=== PATIENT | male | born 1945 ===

== ENCOUNTER 2023-10-22 13:51 | Outpatient (AMB) | payer MEDICARE, OTHER, SELFPAY ==
--- NOTE | 2023-10-22 13:52 | A.OFFVIS_ITS ---
Vital Signs 10/22/23 14:03 Height 6 ft 0.2 in Weight 197 lb BMI 26.6 BP 130/60 Blood Pressure Location Lt brachial Position Sitting Respiration 16 Pulse 89 Pulse Source Pulse Oximeter Pulse Oximetry (%) 98 Oxygen Delivery Method Room Air Intake Visit Reasons: Sciatica/Foot Numbness Intake Note: Patient comes in for initial visit was referred by [facility] primary care. Reports -06/21. Allergies No Known Allergies Allergy (Verified 10/22/23 14:02) HPI Comments Details: Guillermo is very pleasant 78 years old gentleman who presents in my office with complains on minimal pain in the lower buttock, he reports that this pain started on 07/24/2023 3 months ago. She while lying the floor all over the left hip with wall it in his back pocket and started to experience pain in the buttock and numbness of the left foot. He reports that he can not sleep normally or do activities of daily living he can take care of himself and he can function normally. 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 He uses cane for ambulation. He reports that his pain today at the worst is 1/10. He reports that this pain is more severe at the end of the day and less severe in the morning. He reports his pain in terms of tissue damage as jumping, flushing, shooting, sharp, cutting, lacerating, pinching, cramping, crushing, tugging, pulling, wrenching, dull, sore hurting heavy sensation. He had some studies done at [facility] x-ray and MRI those are not available to me. His past medical history significant for prostate cancer status post radiation treatment arthritis rheumatic fever and sexual dysf unction. Past surgical history significant for right hip replacement in 2010 due to severe arthritis. Social history working individual stopped smoking cigarettes long time ago denies drinking alcohol denies recreational drugs. [facility] Medical History (Updated 10/22/23 @ 14:45 by Silvana Larsen) Osteoarthritis Prostate cancer Surgical History (Updated 10/22/23 @ 14:45 by Silvana Larsen) H/O right inguinal hernia repair History of right hip replacement Family History (Updated 10/22/23 @ 14:09 by Silvana Larsen) Father Chronic obstructive pulmonary disease Mother Coronary artery disease Social History (Updated 10/22/23 @ 14:05 by Silvana Larsen) Alcohol intake: former Patient Tobacco Use Status: Former Tobacco user Review of Systems Const Denies chills, Denies fatigue and Denies fever(s) Eyes Denies blurry vision, Denies exophthalmos and Denies diplopia ENT Reports Normal hearing present, Denies vertigo and Denies dizziness Card Denies chest pain, Denies chest pain at rest, Denies chest pain with activity, Denies syncope, Denies rapid heart rate, Denies pedal edema and Denies edema Resp Denies chest congestion, Denies cough, Denies hemoptysis, Denies excessive phlegm production, Denies pain on inspiration and Denies pain with cough GI Denies abdominal pain, Denies belching, Denies melena and Denies bloating Denies urinary incontinence Musc Denies as per HPI, Denies back pain and Denies tingling Neuro Reports Normal hearing present, Denies Abnormal speech present, Denies vertigo, Denies dizziness, Denies syncope, Denies lack of coordination, Denies Sensory deficit (Neuro) and Denies tingling Endo Denies deepening of the voice, Denies fatigue and Denies polyuria Physical Exam Vital Signs: Last Vital Signs Pulse 89 10/22/23 14:03 Resp 16 10/22/23 14:03 BP 130/60 10/22/23 14:03 Pulse Ox 98 10/22/23 14:03 Oxygen Delivery Method Room Air 10/22/23 14:03 BMI result Body Mass Index 26.6 Const General: no acute distress, well developed, alert and awake Nutritional Appearance: average body habitus, well nourished and thin Orientation/consciousness: patient oriented x3 Eyes General: appearance normal, both eyes and all related structures Pupils: Equal, round and reactive pupils present EOM: EOMs intact bilaterally Neck Neck: Yes full ROM Chest Chest palpation & inspection: normal inspection of the chest Resp Effort & Inspection: normal respiratory effort, able to speak in complete sentences, normal respiratory pattern, no audible wheezes and no cough Cardio Jugular venous distension: no JVD GI Inspection: Yes normal to inspection Back/Spine/Pelvis Other: Neither lateral nor medial rotation of the left hip result in increase of the pain in the left buttock. Patient reports absence of pain in the moment of the exam. Neuro General: patient oriented x3 and gait normal Cranial nerves: Yes Equal, round and reactive pupils present and Yes Normal hearing present Speech: No Abnormal speech present Gait exam (Neuro): Normal gait present Motor exam (neuro): 5/5 motor strength present throughout Sensory Exam: No Sensory deficit (Neuro) Extrem General: No pedal edema Psych Speech and movement: Normal speech and movement present Affect: normal affect Attitude: cooperative Thought process: Normal thought process present Thought content: Normal thought content present Insight: Good insight present (Psych) Judgement: Good judgement present (Psych) Assessment & Plan Assessment & Plan (1) Piriformis syndrome: Code(s): G57.00 - Lesion of sciatic nerve, unspecified lower limb Category: Medical (2) Piriformis syndrome of left side: Code(s): G57.02 - Lesion of sciatic nerve, left lower limb Category: Medical Plan This condition most likely is piriformis syndrome. The patient is unlikely to be considered for any interventions at this time because his pain is still subacute. I recommended him to start physical therapy. I also recommended him for 7-10 days ibuprofen 200 mg q.6 hours not p.r.n. on the clock. His pain is non-existent at this time. He reports that he is feeling much better. To fortify the success I recommended to go to physical therapy related to his condition and perform home exercise programs along side the physical therapy and after the completion of the physical therapy. No new appointment is necessary unless the patient wants to see me again and he is pain is worse and persistent. Orders: Orders PT Evaluation and Treatment Today G57.00 - Lesion of sciatic nerve, unspecified lower limb, G57.02 - Lesion of sciatic nerve, left lower limb Coding Level of Care Code New Pt Level 3 (68380) Diagnoses Piriformis syndrome G57.00 Piriformis syndrome of left side G57.02
[2023-10-22 14:03] VITALS: BP 130/60; PULSE 89; RESP 16; O2SAT 98; BMI 26.6
== END 2023-10-22 14:41 | disposition home or self-care (01) ==
PROVIDERS: PCP Physician Assistant Medical; Visit Provider Anesthesiology
DX: G57.00 Lesion of sciatic nerve, unspecified lower limb (principal); G57.02 Lesion of sciatic nerve, left lower limb
CPT/HCPCS: 99203

== ENCOUNTER → 2023-10-22 13:51 | Outpatient (BNVA) | payer MEDICARE, OTHER, SELFPAY | PROVIDERS: PCP Physician Assistant Medical; Visit Provider Anesthesiology | DX: G57.02 Lesion of sciatic nerve, left lower limb (principal) | CPT/HCPCS: 99202 ==